=== PATIENT | female | born 1990 | race Two or more races ===

== ENCOUNTER 2021-04-19 21:09 | Emergency (ER) | payer OTHER, SELFPAY | END 2021-04-19 22:41 | disposition left against medical advice (07) | PROVIDERS: Emergency Provider Emergency Medicine | DX: L02.213 Cutaneous abscess of chest wall (principal) ==

== ENCOUNTER 2021-04-21 11:06 | Emergency (ER) | payer OTHER, SELFPAY ==
[2021-04-21 11:08] VITALS: BP 137/79; PULSE 81; RESP 18; TEMP 36.6; O2SAT 100; BMI 29.9
[2021-04-21] MEDS: Lidocaine HCl 2 % MPF 5 ML VIAL INFILTRATI ×2 (12:14)
--- NOTE | 2021-04-21 13:01 | ED.GENADULT ---
HPI - General Adult General Chief complaint: Skin/Abscess/Foreign Body Stated complaint: lump on chest Time Seen by Provider: 04/21/21 11:54 Source: patient Mode of arrival: ambulatory Limitations: no limitations History of Present Illness HPI narrative: 30-year-old female presents to ED for painful lump on right upper chest wall for the past week. Patient states his red and tender and swollen on palpation. Patient states history of abscess with drainage in area in the past. Patient denies any nipple discharge, swelling redness of the breast, or painful lymph nodes on the right axillary. Related Data Previous Rx's Medication Instructions Recorded cephalexin 500 mg capsule 500 mg PO QID 7 Days #28 cap 04/21/21 doxycycline hyclate 100 mg capsule 100 mg PO BID 7 Days #14 cap 04/21/21 oxycodone-acetaminophen 5 mg-325 1 tab PO TID PRN #9 tab 04/21/21 mg tablet (Percocet) Allergies Allergy/AdvReac Type Severity Reaction Status Date / Time Penicillins Allergy Unknown RASH Unverified 10/25/19 16:04 penicillin Allergy Unknown rash Uncoded 11/10/16 00:00 Review of Systems Review of Systems: Painful lump on chest Yes all other systems are reviewed and are negative [facility] Past Medical History Medical History (Updated 04/21/21 @ 13:07 by LEOLA Lorenzo) No known health problems Social History Social History Advance Directives: No Advance Directives Information Provided: No Patient : No Physical Exam ED Vital Signs: Vital Signs - 24 hr 04/21/21 11:08 Temperature 98 F Pulse Rate 81 Respiratory Rate 18 Blood Pressure 137/79 Pulse Oximetry 100 BMI result Body Mass Index 29.9 Const General: cooperative, healthy appearing, comfortable, no acute distress, well developed, alert and awake Orientation/consciousness: oriented to time and patient oriented x3 HENMT Head: Yes normal to inspection, Yes No palpable skull fracture present, Yes normocephalic, Yes atraumatic and No abrasion Eyes General: appearance normal, both eyes and all related structures Neck Neck: Yes normal visual inspection, Yes full ROM, Yes no lymphadenopathy, Yes no meningeal signs, Yes trachea midline, Yes supple, No anterior neck swelling and No tender Chest Chest/axillae images: 1. area of erythema, tenderness, and fluctuance on palpation. . Right breast normal negative for erythema swelling of the breast, nipple discharge, or right axillary lymph nodes. Left breast normal and negative for left axillary lymph nodes. Resp Effort & Inspection: normal respiratory effort and able to speak in complete sentences Auscultation: clear to auscultation bilaterally Cardio Jugular venous distension: no JVD Heart sounds: S1 normal heart sound present and S2 normal heart sound present GI Inspection: Yes normal to inspection and No abdominal wall ecchymosis Palpation (GI): Soft to palpation, not firm, nontender, no guarding and not rigid General: No CVA tenderness and Yes no CVA tenderness Back/Spine/Pelvis Back: no CVA tenderness, No CVA tenderness and No back tenderness Skin General skin exam: no rashes or lesions noted and elasticity normal Neuro General: oriented to time, patient oriented x3 and no meningeal signs Cranial nerves: Yes CN's II-XII intact bilaterally Extrem General: Yes normal to inspection and Yes full ROM Psych Appearance: grossly normal, well kempt and not disheveled Course Course Course Narrative: Bedside ultrasound shows large collection will perform incision and drainage. Reevaluation(s) Reevaluation #1: lidocaine 2% 7 mL was used for anesthesia. Area cleaned Betadine iodine and normal saline. Size 11 blade was made for incision. Large amount of foul-smelling green pus was drained. Forceps was used to open pockets and more pus with blood was drained. Normal saline was used to wash out the wound. Packing placed into abscess. oxycodone ordered. patient states up-to-date with tetanus Time: 13:06 Medical Decision Making [facility] Narrative Medical decision making narrative: abscess Discharge Plan Discharge Clinical Impression: Abscess of skin or subcutaneous tissue Patient Disposition: Home, Self-Care Instructions: Abscess Incision and Drainage (DC) Additional Instructions: return to the ED in 2 days for re-evaluation and repacking of wound. Return to ED immediately for any pain, fever, chills, breast swelling, redness, profuse drainage, or any other concerning symptoms. You will need some days off from work. Prescriptions: New cephalexin 500 mg capsule 500 mg PO QID 7 Days Qty: 28 0RF doxycycline hyclate 100 mg capsule 100 mg PO BID 7 Days Qty: 14 0RF oxycodone-acetaminophen [Percocet] 5-325 mg tablet 1 tab PO TID PRN (Reason: pain) Qty: 9 0RF Rx Instructions: side effect is drowsiness. Do not take at work or while driving. Referrals: Magdy Maier MD [Physician] - 2 days (Recurrent chest wall abscess.) Stand Alone Forms: Work/School Release Interventions: ED Discharge Assessment Last Done: 04/21/21 13:17 Discharge Date/Time: 04/21/21 13:17 Print Language: Mongolian
[2021-04-21] MEDS: oxyCODONE HCl Immed Release 5 MG TABLET PO (13:11)
== END 2021-04-21 13:17 | disposition home or self-care (01) ==
PROVIDERS: Emergency Provider Emergency Medicine
DX: L02.213 Cutaneous abscess of chest wall (principal)
CPT/HCPCS: 10060; 99284

== ENCOUNTER 2021-04-23 18:20 | Emergency (ER) | payer OTHER, SELFPAY ==
[2021-04-23 19:01] VITALS: BP 112/67; PULSE 52; RESP 18; TEMP 36.7; O2SAT 100; BMI 29.9
--- NOTE | 2021-04-23 20:26 | ED_ITS ---
HPI - Skin/Abscess/Foreign Bdy General Chief complaint: Skin/Abscess/Foreign Body Stated complaint: was seen 04/21, followup w an abscess Time Seen by Provider: 04/23/21 20:12 Source: patient Mode of arrival: ambulatory Limitations: no limitations History of Present Illness HPI narrative: 30-year-old female here for abscess recheck and packing removal. Patient was seen here on April 21 and had an abscess drained on the right chest wall. She is taking her antibiotics as prescribed. She denies any fevers or chills and is feeling well. Related Data Previous Rx's Medication Instructions Recorded cephalexin 500 mg capsule 500 mg PO QID 7 Days #28 cap 04/21/21 doxycycline hyclate 100 mg capsule 100 mg PO BID 7 Days #14 cap 04/21/21 oxycodone-acetaminophen 5 mg-325 1 tab PO TID PRN #9 tab 04/21/21 mg tablet (Percocet) Allergies Allergy/AdvReac Type Severity Reaction Status Date / Time Penicillins Allergy Unknown RASH Verified 04/23/21 19:01 penicillin Allergy Unknown rash Uncoded 04/23/21 19:01 Review of Systems Review of Systems: Yes all other systems are reviewed and are negative Constitutional: Constitutional: Reports no additional constitutional complaints, Denies body ache(s), Denies chills, Denies fever(s), Denies headache(s) and Denies weakness Eyes: Eyes: Reports no additional eye complaints and Denies change in vision ENT: Reports system reviewed and no additional complaints, except as documented, Denies dizziness, Denies headache(s), Denies nasal congestion, De nies nasal discharge and Denies neck pain Cardiovascular: Cardiovascular: Reports no additional cardiovascular complaints, Denies chest pain, Denies leg edema and Denies dyspnea Respiratory: Respiratory: Reports no additional respiratory complaints, Denies cough and Denies dyspnea Gastrointestinal: Gastrointestinal: Reports no additional gastrointestinal complaints, Denies abdominal pain, Denies diarrhea, Denies nausea and Denies vomiting Genitourinary: Genitourinary: Reports no additional female genitourinary complaints and Denies urinary incontinence Musculoskeletal: Musculoskeletal: Reports no additional musculoskeletal complaints, Denies back pain, Denies arthralgias, Denies joint swelling, Denies neck pain, Denies numbness and Denies tingling Integumentary/Breasts: Skin/Breast: Reports system reviewed and no additional complaints, except as docu and Denies rash Neurologic: Reports system reviewed and no additional complaints, except as documented, Denies Abnormal speech present, Denies dizziness, Denies headache(s), Denies numbness, Denies tingling and Denies weakness PMFSH Past Medical History Attestation statement: The following information was validated with the patient. Source: old records reviewed and nursing notes reviewed Medical History No known health problems Social History Social History Patient : No Physical Exam Vital Signs: Vital Signs: Last Vital Signs Temp 98.1 F 04/23/21 19:01 Pulse 52 04/23/21 19:01 Resp 18 04/23/21 19:01 BP 112/67 04/23/21 19:01 Pulse Ox 100 04/23/21 19:01 BMI result Body Mass Index 29.9 Const: General: cooperative, healthy appearing, comfortable and no acute distress Orientation/consciousness: patient oriented x3 Limitations: no limitations HENMT: Head: Yes normal to inspection Ears: hearing grossly normal bilaterally General nose exam: Normal external nose present Face and sinus: Yes normal facial exam Mouth: Normal oral and palatal mucosa present Throat: Yes posterior oropharynx normal Eyes: General: appearance normal, both eyes and all related structures Pupils: Equal, round and reactive pupils present Neck: Neck: Yes normal visual inspection Chest: Other: The right chest there is an abscess with packing present. There is no surrounding induration or fluctuance. Chest palpation & inspection: normal inspection of the chest Resp: Effort & Inspection: normal respiratory effort Auscultation: clear to auscultation bilaterally Cardio: Rate: regular rate Rhythm: regular rhythm Peripheral pulses: Peripheral pulses 2+ throughout GI: Inspection: Yes normal to inspection Palpation (GI): Soft to palpation and nontender Auscultation: normal bowel sounds Back/Spine/Pelvis: Thoracic/Lumbar Spine: thoracic and lumbar spine normal to inspection Skin: General skin exam: no rashes or lesions noted Neuro: General: patient oriented x3, no focal motor deficits and normal sensation to monofilament Cranial nerves: Yes Equal, round and reactive pupils present Cognition (Neuro): normal cognition Speech: No Abnormal speech present Gait exam (Neuro): Normal gait present Motor exam (neuro): 5/5 motor strength present throughout Extrem: General: Yes normal to inspection Course Course Course Narrative: 30-year-old female here for packing removal from a right chest wall abscess. She is taking her antibiotics and has no complaints. This has been a recurrent abscess for the patient. Packing was removed. The area was cleansed with saline and hydrogen peroxide. A topical antibiotic ointment was applied with the bandage. There is no surrounding fluctuance or induration I do not think the area needs to be re packed. I will refer her to follow-up with General surgery to have the entire cyst removed if desired. Reviewed worrisome signs and symptoms of when to return to the emergency department. Comfortable discharge home. MDM - Skin/Abscess/Foreign Bdy Medical Records Attestation: I reviewed the patient's medical records. Lab Data Attestation: I reviewed the patient's lab results. Discharge Plan Discharge Clinical Impression: Abscess re-check Patient Disposition: Home, Self-Care Prescriptions: No Action cephalexin 500 mg capsule 500 mg PO QID 7 Days Qty: 28 0RF doxycycline hyclate 100 mg capsule 100 mg PO BID 7 Days Qty: 14 0RF oxycodone-acetaminophen [Percocet] 5-325 mg tablet 1 tab PO TID PRN (Reason: pain) Qty: 9 0RF Rx Instructions: side effect is drowsiness. Do not take at work or while driving. Referrals: Magdy Maier MD [Physician] - 2 days
[2021-04-23 20:33] VITALS: BP 111/60; PULSE 82; RESP 16; TEMP 37.2; O2SAT 98
== END 2021-04-23 20:44 | disposition home or self-care (01) ==
LOC: HO.ED 20:33
PROVIDERS: Emergency Provider Emergency Medicine
DX: Z48.01 Encounter for change or removal of surgical wound dressing (principal); L02.213 Cutaneous abscess of chest wall
CPT/HCPCS: 99283; 99284

== ENCOUNTER → 2021-09-25 13:39 | Outpatient (BNVA) | payer OTHER, SELFPAY | PROVIDERS: Visit Provider Advanced Practice Midwife | DX: N93.9 Abnormal uterine and vaginal bleeding, unspecified (principal); Z30.09 Encounter for other general counseling and advice on contraception | CPT/HCPCS: 99212 ==

== ENCOUNTER 2022-03-30 13:16 | Outpatient (REF) | payer OTHER, SELFPAY ==
[2022-04-03 06:43] LABS: HPV mRNA E6/E7 rflx Not Detected (Not Detected)
== END 2022-03-30 13:17 | disposition home or self-care (01) ==
LOC: HO.LNP 13:16
PROVIDERS: Visit Provider Advanced Practice Midwife
DX: Z01.419 Encounter for gynecological examination (general) (routine) without abnormal findings (principal); Z11.51 Encounter for screening for human papillomavirus (HPV)
CPT/HCPCS: 87624; 88142

== ENCOUNTER 2022-03-30 13:58 | Outpatient (REF) | payer OTHER, SELFPAY ==
[2022-03-31 12:51] LABS: BV Int Neg Control Negative (Negative); BV Int Pos Control Positive (Positive)
== END 2022-03-30 13:59 | disposition home or self-care (01) ==
LOC: HO.LAB 13:58
PROVIDERS: Visit Provider Advanced Practice Midwife
DX: N89.8 Other specified noninflammatory disorders of vagina (principal)
CPT/HCPCS: 87480; 87510; 87660

== ENCOUNTER 2023-08-31 14:17 | Outpatient (AMB) | payer OTHER, SELFPAY ==
--- NOTE | 2023-08-31 14:19 | MHC.OFFVIS ---
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 Doing well with no concerns. She tries to eat healthy and stays active with exercise w/walking. Light spotting monthly with the [employer]. Due for exchange by 11/26/2024. Currently is sexually active. She denies vaginal itching and irritation. STI screening offered; she declines. Denies family history of breast, ovarian or colon cancer. Last pap smear 2022, negative. 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 Reproductive History Menstrual Age of Menarche: 11 control method: progestin IUCD (Mirena 11/10/2016) Total pregnancies: 2 Full term: 2 Number of Living Children: 2 Date of last pap smear: 03/30/22 (neg pap and hpv) History of abnormal pap smear: Yes (02/23 ascus neg hpv) Review of Systems Const All systems reviewed & are unremarkable except as noted in HPI and below Reports as per HPI Eyes Reports no additional complaints ENT Reports no additional complaints Card Reports no additional complaints Resp Reports no additional complaints GI Reports as per HPI and Reports no additional complaints Reports as per HPI Musc Reports no additional complaints Skin/Breast Reports as per HPI Neuro Reports no additional complaints Psych Reports no additional complaints Endo Reports no additional complaints Alhaji/Lymph Reports no additional complaints Aller/Immun Reports no additional complaints Physical Exam Vital Signs: Last Vital Signs BP 100/60 08/31/23 14:21 BMI result Body Mass Index 33.0 Const General: cooperative, healthy appearing, no acute distress, well developed and alert Orientation/consciousness: patient oriented x3 HEENT Head: Yes normal to inspection Eyes General: appearance normal, both eyes and all related structures Neck Neck: Yes normal visual inspection Thyroid: Thyroid normal Chest Chest palpation & inspection: normal inspection of the chest and other (no puckering, dimpling, peau de orange, retraction, discharge, masses) Breast/axilla inspection: normal inspection of the breasts Breast/axilla palpation: normal palpation of the breasts Resp Effort & Inspection: normal respiratory effort GI Inspection: Yes normal to inspection Palpation (GI): Soft to palpation Rectal Exam - Female: deferred General: Yes bladder normal to palpation External Female Exam: normal external appearance and normal appearance of the urethra Speculum Exam - Vagina: normal appearance of the vagina, normal palpation and normal vaginal discharge Speculum Exam - Cervix: normal appearance of the cervix, normal palpation and Other cervical findings present (IUD strings present at the os) Bimanual exam- vagina & uterus: normal bimanual exam, normal palpation, uterine size normal, bladder normal to palpation, normal palpation and non-tender Bimanual Exam- Adnexa, other: no masses Skin General skin exam: no rashes or lesions noted Rashes: no rashes Neuro General: patient oriented x3 Cognition (Neuro): normal cognition Extrem General: Yes normal to inspection Psych Attitude: cooperative Thought process: Normal thought process present Assessment & Plan Assessment & Plan (1) Encounter for well woman exam with routine gynecological exam: Code(s): Z01.419 - Encounter for gynecological examination (general) (routine) without abnormal findings Category: Medical Plan Discussed: Current recommendations for pap smears per ASCCP guidelines. Breast awareness and periodic breast exams. Maintain a healthy lifestyle including a well balanced diet and routine exercise. Plan Mirena reinsertion next year before November. Patient verbalizes understanding and agrees to the plan of care. She was given opportunity to ask questions and all questions were answered to the best of my ability. 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 This note is constructed using voice recognition software. While every effort has been made to ensure accuracy, reeling and tubing machine operator errors may have been included. Coding Level of Care Code Est Pt Prev Care 18-39y(46826) Diagnoses Encounter for well woman exam with routine gynecological exam Z01.419
[2023-08-31 14:21] VITALS: BP 100/60; BMI 33.0
== END 2023-08-31 14:46 | disposition home or self-care (01) ==
PROVIDERS: Visit Provider Advanced Practice Midwife
DX: Z01.419 Encounter for gynecological examination (general) (routine) without abnormal findings (principal)
CPT/HCPCS: 99395

== ENCOUNTER → 2023-08-31 14:17 | Outpatient (BNVA) | payer OTHER, SELFPAY | PROVIDERS: Visit Provider Advanced Practice Midwife | DX: Z01.419 Encounter for gynecological examination (general) (routine) without abnormal findings (principal) | CPT/HCPCS: 99395 ==

== ENCOUNTER 2024-11-17 11:41 | Emergency (ER) | payer OTHER, SELFPAY ==
[2024-11-17 11:43] VITALS: BP 139/82; PULSE 97; RESP 18; TEMP 36.2; O2SAT 97; BMI 34.0
--- NOTE | 2024-11-17 11:52 | ED.EYEPROB ---
HPI - Eye Problem General Chief complaint: Eye Problems Stated complaint: l eye issue Time Seen by Provider: 11/17/24 11:46 Source: patient Mode of arrival: ambulatory Limitations: no limitations History of Present Illness ED Provider: SANDRA HAYWOOD PA-C HPI Narrative: 33 year old female presents to the ED today for evaluation of left eye irritation/redness x4 days. She does not recall getting anything in her eye. She reports using a dirty makeup brush, is concerned this may have caused an infection. Admits to waking up with crusting to her left eye this morning. Endorses increased tearing and irritation however denies any vision changes. Denies fever, chills, pain with EOMs. Patient does not wear corrective lenses. Denies trauma/ injury to the eye. Related Data Home Medications ?Medication ?Instructions ?Recorded ?Confirmed levonorgestrel (Mirena) intrauterine 09/25/21 Previous Rx's ?Medication ?Instructions ?Recorded erythromycin 5 mg/gram (0.5 %) eye 0.5 inch ophthalmic (eye) QID 7 11/17/24 ointment days #3.5 grams Allergies Allergy/AdvReac Type Severity Reaction Status Date / Time Penicillins Allergy Unknown RASH Verified 11/17/24 11:46 penicillin Allergy Unknown rash Uncoded 11/17/24 11:46 Review of Systems Review of Systems: Constitutional: No fever, chills, fatigue, night sweats, weight changes ENT/Mouth: No ear pain, hearing loss, nasal congestion, sinus pain, rhinorrhea, sore throat Eyes: No swelling, redness, vision changes, discharge, +eye irritation Cardio: No chest pain, palpitations, VIDAL, orthopnea, peripheral edema Pulm: No SOB, cough, sputum, wheezing, dyspnea, hemoptysis GI: No nausea, vomiting, hematemesis, abdominal pain, diarrhea, constipation, hematochezia, melena : No irregular bleeding, dysuria, frequency, urgency, hesitancy, hematuria, flank pain, urinary flow changes, urinary incontinence or retention MSK: No back pain, neck pain, joint pain, myalgias Skin: No lesions, rashes Neuro: No weakness, numbness, paresthesias, LOC, dizziness, headache Psych: No anxiety/panic, depression, SI/HI, AH/VH All other systems reviewed and are negative. [facility] Past Medical History Attestation statement: The following information was validated with the patient. 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 No enophthalmous or exopthalmous. EOMs intact without pain or entrapment. PERRLA. No photophobia. No obvious foreign body or abrasion. Noted conjunctival injection to L eye. no chemosis. No hazy cornea. Visual acuity OD 20/25 OS 20/30 No FB noted on eyelid eversion. On tetracaine exam, no reuptake to suggest abrasion or fb. No ulceration. No dendritic lesions. Head: Yes normal to inspection, Yes No palpable skull fracture present, Yes normocephalic and Yes atraumatic Neck: Neck: Yes normal visual inspection, Yes full ROM and Yes no lymphadenopathy Resp: Effort & Inspection: normal respiratory effort and able to speak in complete sentences Auscultation: clear to auscultation bilaterally Cardio: Rate: regular rate Rhythm: regular rhythm Skin: General skin exam: no rashes or lesions noted Neuro: General: patient oriented x3 and gait normal Course Course Course Narrative: Physical exam consistent with bacterial conjunctivitis. Erythromycin ointment sent to pharmacy for treatment. Patient has remained stable throughout ED visit today. Discussed worrisome signs and symptoms and when to return to the ED. All questions answered at this time. Patient is agreeable with disposition and stable for discharge. Medications Administered Discontinued Medications Generic Name Dose Route Start Last Admin Trade Name Primo PRN Reason Stop Dose Admin Fluorescein Sodium 1 strip 11/17/24 11:46 11/17/24 11:53 Fluorescein Sodium Strip EYE-LEFT 11/17/24 11:47 1 strip ONCE ONE Administration Tetracaine HCl 1 drop 11/17/24 11:46 11/17/24 11:53 Tetracaine Hcl/Pf 0.5% Oph Lisset 4 Ml Drops EYE-LEFT 11/17/24 11:47 1 drop ONCE ONE Administration Medical Decision Making Medical Decision Making [facility] Narrative: 33 year old female presents to the ED today for evaluation of left eye irritation/redness x4 days. vital signs stable, afebrile. she is well appearing and in NAD. on exam, No periorbital swelling. No enophthalmous or exopthalmous. EOMs intact without pain or entrapment. PERRLA. No photophobia. No obvious foreign body or abrasion. Noted conjunctival injection to L eye. no chemosis. No hazy cornea. Visual acuity OD 20/25 OS 20/30. No FB noted on eyelid eversion. On tetracaine exam, no reuptake to suggest abrasion or fb. No ulceration. No dendritic lesions. Differential diagnosis includes corneal abrasion, corneal ulceration, corneal FB, conjunctivitis. Lower suspicion for iritis, keratitis. Unlikely pre-septal cellulitis, orbital cellulitis, acute angle closure glaucoma. Plan for tetracaine/fluorescein examination, VA, and disposition. Differential Diagnosis Differential Diagnoses: The differential diagnosis associated with the presentation includes as above. Admission/Observation Not indicated. External Record Review External record reviewed: Inpatient record Prescription Management I considered prescription management with: Antibiotic (erythromycin ointment) Social Determinants Patient?s care significantly limited by Social Determinants of Health including: Other Social Determinant of Health Critical Care Time Critical Care Time Critical Care Time: No Discharge Plan Discharge Clinical Impression: Bacterial conjunctivitis Patient Disposition: Home, Self-Care Instructions: Conjunctivitis (ED) Additional Instructions: You were evaluated in the ED today for eye irritation. You have a bacterial infection called conjunctivitis. See home care instructions. I am sending an antibiotic eye ointment to your pharmacy. Use this 4 times daily as prescribed for the next 7 days. Do not stick anything else in your eye including eye drops. Follow up with PCP as needed. Return with any new/worsening symptoms. In the case of an emergency call 911,. Prescriptions: New erythromycin 5 mg/gram (0.5 %) ointment 0.5 inch ophthalmic (eye) QID 7 Days Qty: 3.5 0RF No Action Mirena 20 mcg/24 hours (7 yrs) 52 mg intrauterine device intrauterine Referrals: Physician,None [Primary Care Provider, Medical] Interventions: ED Discharge Assessment Last Done: 11/17/24 12:12 Discharge Date/Time: 11/17/24 12:12 Print Language: Polish
[2024-11-17] MEDS: Tetracaine HCl/PF 0.5% Oph Sol 4 ML DROPS 1 DROP EYE-LEFT (11:53)
[2024-11-17] MEDS: Fluorescein Sodium STRIP 1 STRIP EYE-LEFT (11:53)
[2024-11-17 12:12] VITALS: BP 139/82; PULSE 97; RESP 18; TEMP 36.2; O2SAT 97
== END 2024-11-17 12:12 | disposition home or self-care (01) ==
PROVIDERS: Emergency Provider Emergency Medicine
DX: H10.89 Other conjunctivitis (principal)
CPT/HCPCS: 99282; 99283

== ENCOUNTER 2024-11-22 08:57 | Emergency (ER) | payer OTHER, SELFPAY ==
[2024-11-22 09:00] VITALS: BP 131/76; PULSE 87; RESP 16; TEMP 37; O2SAT 98; BMI 38.8
--- NOTE | 2024-11-22 09:44 | ED_ITS ---
HPI - Eye Problem General Chief complaint: Eye Problems Stated complaint: eye irritation Time Seen by Provider: 11/22/24 09:16 Source: patient Mode of arrival: ambulatory Limitations: no limitations History of Present Illness ED Provider: DR. Acevedo HPI Narrative: 33-year-old female came to the emergency department for evaluation of bilateral eye irritation, patient was seen in the emergency department diagnosed with bacterial conjunctivitis and discharged on erythromycin ointment. Patient reports some improvement in the left eye but persistent of her symptoms now the right eye is watery, red and congested. Related Data Home Medications ?Medication ?Instructions ?Recorded ?Confirmed levonorgestrel (Mirena) intrauterine 09/25/21 Previous Rx's ?Medication ?Instructions ?Recorded erythromycin 5 mg/gram (0.5 %) eye 0.5 inch ophthalmic (eye) QID 7 11/17/24 ointment days #3.5 grams ciprofloxacin HCl 0.3 % eye drops See Rx Instructions ophthalmic 11/22/24 (eye) .COMPLEX #5 mL Allergies Allergy/AdvReac Type Severity Reaction Status Date / Time Penicillins Allergy Unknown RASH Verified 11/22/24 09:02 penicillin Allergy Unknown rash Uncoded 11/17/24 11:46 Review of Systems Review of Systems: All other systems are reviewed and are negative Constitutional: Reports as per HPI and Reports no additional constitutional complaints Eyes: Reports as per HPI and Reports no additional eye complaints Reports system reviewed and no additional complaints, except as documented Cardiovascular: Reports as per HPI and Reports no additional cardiovascular complaints Respiratory: Reports as per HPI and Reports no additional respiratory complaints Gastrointestinal: Reports as per HPI and Reports no additional gastrointestinal complaints Genitourinary: Reports no additional female genitourinary complaints Musculoskeletal: Reports no additional musculoskeletal complaints Skin/Breast: Reports system reviewed and no additional complaints, except as docu Psychiatric: Reports no additional psychiatric complaints Endocrine: Reports no additional endocrine complaints Hematologic/Lymphatic: Reports no additional hematologic/lymphatic complaints Allergic/Immunologic: Reports no additional allergic/immunologic complaints Reports system reviewed and no additional complaints, except as documented and Reports Abnormal speech present FOR[facility]LY [facility] Past Medical History Medical History No known health problems Family History Family History Mother Diabetes Social History Social History Household Members: Significant Other and Children Household Members Other:: lives w/partner and 2 children Housing: Apartment Alcohol intake: never Patient Tobacco Use Status: Never used Tobacco Advance Directives: No Advance Directives Information Provided: No Current occupational status: employed 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 Blood pressure elevated. Heart rate normal. Respiratory rate normal. Temperature normal. Oxygen saturation normal. Appearance: Alert. Oriented X3. No acute distress. Head: Normal external exam. Normocephalic. Atraumatic. No Larsen signs noted. No raccoon eyes noted Eyes: VA right 20/25, left 20/30. IOP right 14, left 13. General: Visual Thayer: normal visual thayer by confrontation Alignment and Position: alignment normal and position normal Periorbital: periorbital findings normal Eyelids: Yes eyelids normal Conjunctivae: conjunctival injection Sclerae: sclerae normal Corneas: corneas normal, no corneal fluorescein uptake Pupils: Equal, round and reactive pupils present and Pupil accommodation reflex normal EOM: EOM abnormal (Limited abduction of right eye) and No Nystagmus present Direct Ophthalmoscopy: normal light reflex, no photophobia, no papilledema and fundi normal bilaterally ENT: TM's Normal. Pharynx normal. Uvula midline. Moist mucous membranes. No trismus noted. No drooling noted. No muffled voice noted. Neck: Normal inspection. Neck supple. FROM. No adenopathy. Thyroid Normal. No meningeal signs. No neck mass noted. CVS: Normal heart rate and rhythm. Heart sound normal. No murmurs noted. Pulses normal throughout. Respiratory: No respiratory distress. Painless inspiration. Breath sounds normal. No wheezes/rales/rhonchi noted. Chest nontender. No accessory muscle usage noted or decreased air movement noted. Abdomen: Soft and nontender. Bowel sounds normal in all 4 quadrants. No distention noted. No organomegaly noted. No visible injury noted. Back: No CVA tenderness. Full range of motion noted. Skin: Skin warm and dry. Normal skin color. Normal skin turgor. No rashes/lesions/lacerations noted. Extremities: No lower extremity edema. Extremities exhibit normal range of motion. Extremities nontender. Neuro: Oriented X 3. Cranial nerve exam: II-XII are grossly intact No motor deficit. No sensory deficit. Reflexes normal. Course Reevaluation(s) Reevaluation #1: Started with left eye conjunctivitis now bilateral high symptoms patient is not responding to erythromycin ointment, will add Cipro eyedrops Time: 10:11 Medications Administered Discontinued Medications Generic Name Dose Route Start Last Admin Trade Name Armandoq PRN Reason Stop Dose Admin Fluorescein Sodium 1 strip 11/22/24 09:43 11/22/24 12:06 Fluorescein Sodium Strip EYE-BOTH 11/22/24 09:44 1 strip ONCE ONE Administration Tetracaine HCl 3 drop 11/22/24 09:43 11/22/24 12:06 Tetracaine Hcl/Pf 0.5% Oph Lisset 4 Ml Drops EYE-BOTH 11/22/24 09:44 3 drop ONCE ONE Administration Medical Decision Making Differential Diagnosis Differential Diagnoses: The differential diagnosis associated with the presentation includes (Conjunctivitis, foreign body, corneal abrasion, glaucoma.) Admission/Observation Consideration of admission/observation: Escalation of care including admission/observation considered Discharge Plan Discharge Clinical Impression: Bacterial conjunctivitis Patient Disposition: Home, Self-Care Instructions: Conjunctivitis (ED) Prescriptions: New ciprofloxacin HCl 0.3 % drops See Rx Instructions .ROUTE .COMPLEX Qty: 5 0RF Rx Instructions: put 1-2 drps in affected eye(s) every 2hr up to 8 times/day x2days; then 4 t imes/day x5days No Action erythromycin 5 mg/gram (0.5 %) ointment 0.5 inch ophthalmic (eye) QID 7 Days Qty: 3.5 0RF Mirena 20 mcg/24 hours (7 yrs) 52 mg intrauterine device intrauterine Referrals: Steven Castellanos [Physician, Ophthalmology] Print Language: Tajik
[2024-11-22] MEDS: Tetracaine HCl/PF 0.5% Oph Sol 4 ML DROPS 3 DROP EYE-BOTH (12:06)
[2024-11-22] MEDS: Fluorescein Sodium STRIP 1 STRIP EYE-BOTH (12:06)
[2024-11-22 12:32] VITALS: BP 131/76; PULSE 87; RESP 16; TEMP 37; O2SAT 98
== END 2024-11-22 12:34 | disposition home or self-care (01) ==
PROVIDERS: Emergency Provider Emergency Medicine
DX: H10.9 Unspecified conjunctivitis (principal); Z79.899 Other long term (current) drug therapy
CPT/HCPCS: 99283; 99284